=== PATIENT | female | born 1985 | race Caucasian/White ===

== ENCOUNTER 2022-10-17 08:18 | Day surgery (SDC) | payer BC, OTHER ==
[~2022-10-17 08:18] MED LIST: LACTATED RINGERS 1,000 ML IV SCH; LIDOCAINE 1% (10MG/ML) FOR IV START INTRADERMA PRN
[2022-10-17 09:04] VITALS: TEMP 97.5
[2022-10-17] MEDS ORDERED: PROPOFOL 10 MG/ML 20 ML VIAL IV ONE (09:33)
[2022-10-17] MEDS ORDERED: fentaNYL (PF) 50 MCG/ML 2 ML AMP ONE (09:33)
[2022-10-17] MEDS ORDERED: LIDOCAINE 2% INJ 20 MG/ML (2 ML VIAL) ONE (09:33)
--- NOTE | 2022-10-17 09:46 | P.PCN ---
Date of Procedure: 10/17/22 Procedure(s) Performed: BRIEF HISTORY: Patient is a 29-year-old, pleasant, 8 female scheduled for an upper endoscopy as a part of evaluation of epigastric and chest pain for the last 2 months duration. She denies any heartburn. Symptoms are worse with eating and has sensation of dysphagia. Denies any odynophagia. She was started on Protonix 40 mg daily and symptoms are gradually improving. PROCEDURE PERFORMED: Esophagogastroduodenoscopy with biopsy PREOPERATIVE DIAGNOSIS: Epigastric and chest pain for the last 2 months duration. IV sedation per anesthesia. PROCEDURE: After informed consent was obtained, the patient was brought into the endoscopy unit. IV sedation was administered by Anesthesia under continuous monitoring. Initially the Olympus GIF-140 video endoscope was inserted into the mouth. Esophagus intubated without any difficulty. It was gradually advanced into the stomach and duodenum and carefully examined. The bulb and the second part of the duodenum appeared normal. The scope at this time was withdrawn to the stomach, adequately insufflated with air, and upon careful examination, mucosa of the antrum, linear areas of erosions which were biopsied. Mucosa of the body, cardia and the fundus appeared normal. The scope was then withdrawn into the esophagus. The GE junction was located at 37 cm from the incisors. There were linear erosions in the distal esophagus consistent with LA grade B reflux esophagitis. Rest of the esophagus appeared normal and the patient tolerated the procedure well. IMPRESSION: 1. Linear erosions in the distal esophagus consistent with LA grade B reflux esophagitis. 2. Antral erosive gastritis. RECOMMENDATIONS: The findings of this examination were discussed with the patient as well as a family. Follow with the biopsy results. She was advised to increase the Protonix to 40 mg twice daily for 2 months and then decrease it to once daily. Recommended diet modification and she was briefly educated about antireflux measures..
[2022-10-17 10:21] VITALS: BP 112/79; PULSE 68; RESP 16
== END 2022-10-17 10:38 | disposition home or self-care (01) ==
LOC: ORWHC2ENDO 08:18
PROVIDERS: ATTEND Internal Medicine Gastroenterology
DX: K31.9 Disease of stomach and duodenum, unspecified (principal); K29.50 Unspecified chronic gastritis without bleeding; K21.00 Gastro-esophageal reflux disease with esophagitis, without bleeding; I10 Essential (primary) hypertension; F17.210 Nicotine dependence, cigarettes, uncomplicated; Z79.899 Other long term (current) drug therapy; Z88.0 Allergy status to penicillin
CPT/HCPCS: 81025; 88305; 43239; J3010; J2704; J2001

== ENCOUNTER 2023-01-13 15:20 | Emergency (ER) | payer OTHER ==
[2023-01-13] MEDS ORDERED: AZITHROMYCIN 500 MG TAB PO STA (17:18)
[2023-01-13] MEDS ORDERED: IBUPROFEN 800 MG TAB PO STA (17:18)
[2023-01-13] MEDS ORDERED: DEXAMETHASONE SOD PHOSPHATE 10 MG/ML 1 ML VIAL IM STA (17:18)
--- NOTE | 2023-01-13 17:20 | ED ---
ENT HPI - General Chief complaint: ENT Stated complaint: ENT Time Seen by Provider: 01/13/23 16:18 Source: patient, RN notes reviewed, old records reviewed Mode of arrival: ambulatory Limitations: no limitations - History of Present Illness Initial comments: This is a 29-year-old female to the emergency department for evaluation. Patient presents today for evaluation regards to throat pain persistent complaints of sore throat with cough and congestion. Symptoms for greater than a week today. No home with [id number] medications. Patient has no significant medical history takes no medication currently. 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 MD complaint: sore throat, other (Cough congestion) -: week(s) Location: throat Severity: mild Severity scale (1-10): 3 Consistency: constant Improves with: none Worsens with: swallowing (Speaking) Context-Epistaxis: history of similar Associated Symptoms: cough, sore throat - Related Data Home Medications Medication Instructions Recorded Confirmed Losartan/Hydrochlorothiazide 1 tab PO DAILY 10/15/22 10/15/22 [Losartan-Hctz 50-12.5 mg Tab] Pantoprazole Sodium 40 mg PO DAILY 10/15/22 10/15/22 Previous Rx's Medication Instructions Recorded Azithromycin [Zithromax] 500 mg PO DAILY #5 tab 01/13/23 Allergies Allergy/AdvReac Type Severity Reaction Status Date / Time Penicillins Allergy Rash/Hives Verified 01/13/23 15:27 Review of Systems ROS Statement: Those systems with pertinent positive or pertinent negative responses have been documented in the HPI. ROS Other: All systems not noted in ROS Statement are negative. Past Medical History Past Medical History: GERD/Reflux, Hypertension Additional Past Medical History / Comment(s): ITP History of Any Multi-Drug Resistant Organisms: None Reported Past Surgical History: Adenoidectomy, Cholecystectomy, Tonsillectomy Additional Past Surgical History / Comment(s): spleenectomy Past Anesthesia/Blood Transfusion Reactions: No Reported Reaction Past Psychological History: No Psychological Hx Reported Smoking Status: Current every day smoker - Past Family History Mother Family Medical History: Cancer Additional Family Medical History / Comment(s): small cell General Exam - General Exam Comments Initial Comments: Laryngitis hot potato voice with no stridor Limitations: no limitations General appearance: alert, in no apparent distress Head exam: Present: atraumatic, normocephalic, normal inspection Eye exam: Present: normal appearance, PERRL, EOMI. Absent: scleral icterus, conjunctival injection, periorbital swelling ENT exam: Present: normal exam, mucous membranes moist Neck exam: Present: normal inspection. Absent: tenderness, meningismus, lymphadenopathy Respiratory exam: Present: wheezes. Absent: respiratory distress, rales, rhonchi, stridor Cardiovascular Exam: Present: regular rate, normal rhythm, normal heart sounds. Absent: systolic murmur, diastolic murmur, rubs, gallop, clicks GI/Abdominal exam: Present: soft, normal bowel sounds. Absent: distended, tenderness, guarding, rebound, rigid Extremities exam: Present: normal inspection, full ROM, normal capillary refill. Absent: tenderness, pedal edema, joint swelling, calf tenderness Back exam: Present: normal inspection Neurological exam: Present: alert, oriented X3, CN II-XII intact Psychiatric exam: Present: normal affect, normal mood Skin exam: Present: warm, dry, intact, normal color. Absent: rash Course Vital Signs 01/13/23 01/13/23 15:22 18:41 Temperature 97.4 F L 98.7 F Pulse Rate 74 79 Respiratory 18 21 Rate Blood Pressure 156/98 135/74 O2 Sat by Pulse 97 96 Oximetry - Reevaluation(s) Reevaluation #1: 01/13/23 18:33 Medical records reviewed Reevaluation #2: 01/13/23 18:33 Patient symptoms improved Reevaluation #3: 01/13/23 18:33 Patient informed results questions answered Reevaluation #4: 01/13/23 18:33 Was pt. sent in by a medical professional or institution (, PA, PSYCHIATRIC CLINICIAN, urgent care, hospital, or senior care...) When possible be specific @ -no Did you speak to anyone other than the patient for history (EMS, parent, family, police, friend...)? What history was obtained from this source @ -no Did you review nursing and triage notes (agree or disagree)? Why? @ -agree Are old charts reviewed (outside hosp., previous admission, EMS record, old EKG, old radiological studies, urgent care reports/EKG's, senior care records)? Report findings @ -yes Differential Diagnosis (chest pain, altered mental status, abdominal pain women, abdominal pain men, vaginal bleeding, weakness, fever, dyspnea, syncope, headache, dizziness, GI bleed, back pain, seizure, CVA, palpatations, mental health, musculoskeletal)? @ -prior EKG interpreted by me (3pts min.). @ -no X-rays interpreted by me (1pt min.). @ -yes CT interpreted by me (1pt min.). @ -no U/S interpreted by me (1pt. min.). @ -no What testing was considered but not performed or refused? (CT, X-rays, U/S, labs)? Why? @ -none What meds were considered but not given or refused? Why? @ -none Did you discuss the management of the patient with other professionals (professionals i.e. , PA, PSYCHIATRIC CLINICIAN, lab, RT, psych nurse, social media campaign manager, roll line operator, teacher, youth probation officer, geriatric case manager)? Give summary @ -no Was smoking cessation discussed for >3mins.? @ -no Was critical care preformed (if so, how long)? @ -no Were there social determinants of health that impacted care today? How? (Homelessness, low income, unemployed, alcoholism, drug addiction, transportation, low edu. Level, literacy, decrease access to med. care, long-term, rehab)? @ -none Was there de-escalation of care discussed even if they declined (Discuss DNR or withdrawal of care, Hospice)? DNR status @ -no What co-morbidities impacted this encounter? (DM, HTN, Smoking, COPD, CAD, Cancer, CVA, ARF, Chemo, Hep., AIDS, mental health diagnosis, sleep apnea, morbid obesity)? @ -none Was patient admitted / discharged? Hospital course, mention meds given and route, prescriptions, significant lab abnormalities, going to OR and other pertinent info. @ - 37 female to the emergency department for evaluation of a sore throat and weakness, cough patient presents today for evaluation of cough congestion difficulty speaking with hoarse voice. Patient does have laryngitis during exam no moaning atypical on x-ray, we'll treat with antibiotics and greater than a week and patient can be discharged home Discharge Undiagnosed new problem with uncertain prognosis? @ -no Drug Therapy requiring intensive monitoring for toxicity (Heparin, Nitro, Insulin, Cardizem)? @ -no Were any procedures done? @ -no Diagnosis/symptom? @ -Cough URI laryngitis Acute, or Chronic, or Acute on Chronic? @ -Acute Uncomplicated (without systemic symptoms) or Complicated (systemic symptoms)? @ -Complicated Side effects of treatment? @ -no Exacerbation, Progression, or Severe Exacerbation? @ -exacerbation Poses a threat to life or bodily function? How? (Chest pain, [place], [place], pneumonia, PE, COPD, DKA, ARF, appy, cholecystitis, CVA, Diverticulitis, Homicidal, Suicidal, threat to staff... and all critical care pts) @ -no Reevaluation #5: 01/13/23 18:33 Differential Dyspnea: Coronary syndrome, arrhythmia, tamponade, asthma, COPD, pulmonary embolism, pneumonia, pneumothorax, pulmonary effusion, anaphylaxis, diabetic ketoacidosis, flailed chest, pulmonary contusion, diaphragmatic rupture, anemia, neuromuscular, this is not meant to be an all-inclusive list. Medical Decision Making - Medical Decision Making 37 female to the emergency department for evaluation of a sore throat and weakness, cough patient presents today for evaluation of cough congestion diffi culty speaking with hoarse voice. Patient does have laryngitis during exam no moaning atypical on x-ray, we'll treat with antibiotics and greater than a week and patient can be discharged home - Radiology Data Radiology results: report reviewed (Chest x-ray does show atypical pneumonia), image reviewed Disposition Clinical Impression: Laryngitis, Pneumonia, Atypical pneumonia Disposition: HOME SELF-CARE Condition: Good Instructions (If sedation given, give patient instructions): Community Acquired Pneumonia (ED), Croup (ED) Prescriptions: Azithromycin [Zithromax] 500 mg PO DAILY #5 tab Is patient prescribed a controlled substance at d/c from ED?: No Referrals: Adis Baumann MD [Primary Care Provider] - 1-2 days Time of Disposition: 18:30
--- NOTE | 2023-01-13 18:16 | XR ---
EXAMINATION TYPE: XR chest 2V DATE OF EXAM: 01/13/2023 COMPARISON: None HISTORY: 37-year-old female with fever and cough TECHNIQUE: PA and lateral views FINDINGS: Heart normal size. Aorta and pulmonary vasculature within normal limits. Focal hazy lower lung densit ies likely relates to overlying soft tissue. However, there is also peribronchial cuffing and interst itial prominence. IMPRESSION: Some peribronchial cuffing suggests bronchitis or asthma. No focal infiltrate seen.
[2023-01-13 18:51] VITALS: BP 135/74; PULSE 79; RESP 21; TEMP 98.7
== END 2023-01-13 18:46 | disposition home or self-care (01) ==
LOC: EC 15:20
DX: J18.9 Pneumonia, unspecified organism (principal); J04.0 Acute laryngitis; J06.9 Acute upper respiratory infection, unspecified; I10 Essential (primary) hypertension; K21.9 Gastro-esophageal reflux disease without esophagitis; F17.200 Nicotine dependence, unspecified, uncomplicated; Z79.899 Other long term (current) drug therapy; Z88.0 Allergy status to penicillin; Z90.49 Acquired absence of other specified parts of digestive tract; Z90.81 Acquired absence of spleen
CPT/HCPCS: 71046; 99284; 96372; J1100

== ENCOUNTER 2023-03-08 09:25 | Emergency (ER) | payer OTHER ==
[2023-03-08 09:43] VITALS: RESP 18
--- NOTE | 2023-03-08 10:06 | XR ---
EXAMINATION TYPE: XR chest 2V DATE OF EXAM: 03/08/2023 COMPARISON: 01/13/2023 HISTORY: Chest pain TECHNIQUE: Frontal and lateral views of the chest are obtained. FINDINGS: There is no focal air space opacity. No evidence for pneumothorax. No pleural effusion. The cardiac silhouette size is within normal limits. The osseous structures are grossly intact. IMPRESSION: 1. No acute cardiopulmonary process.
--- NOTE | 2023-03-08 10:58 | ED ---
General Adult HPI - General Source: patient Mode of arrival: ambulatory Limitations: no limitations <Rufus Cobian - Last Filed: 03/08/23 10:58> - General Source: patient, RN notes reviewed Mode of arrival: ambulatory Limitations: no limitations <Marielos Sandoval - Last Filed: 03/08/23 13:35> - General Chief complaint: Upper Respiratory Infection Stated complaint: Cough, Fever Time Seen by Provider: 03/08/23 10:58 - History of Present Illness Initial comments: 38-year-old female presenting to the ED with a chief complaint of upper respiratory symptoms. Patient states for the past 4 days has had cough, myalgias, congestion, rhinorrhea, subjective fever. Patient reports despite taking cough medications is still coughing prompting presentation to the ED for further evaluation. No chest pain or shortness of breath. (Rufus Cobian) In addition to the information above, patient denies any sick contacts. She does report a history of asthma. States that breathing hurts but is not difficult. She is also running out of her inhaler. The cough is the most bothersome symptom for her and has been very difficult to control with over the counter treatment. (Marielos Sandoval) - Related Data Home Medications Medication Instructions Recorded Confirmed Losartan/Hydrochlorothiazide 1 tab PO DAILY 10/15/22 10/15/22 [Losartan-Hctz 50-12.5 mg Tab] Pantoprazole Sodium 40 mg PO DAILY 10/15/22 10/15/22 Previous Rx's Medication Instructions Recorded Azithromycin [Zithromax] 500 mg PO DAILY #5 tab 01/13/23 Albuterol Sulfate [Albuterol 1 puff PO Q4-6H PRN #8.5 gm 03/08/23 Sulfate Hfa] Molnupiravir [Lagevrio (Eua)] 800 mg PO BID 5 Days #40 cap 03/08/23 guaiFENesin-Coden 100-10MG/5ML 5 - 10 ml PO Q4-6H PRN 3 Days #180 03/08/23 [Robitussin AC] ml predniSONE 50 mg PO DAILY 5 Days #5 tab 03/08/23 Allergies Allergy/AdvReac Type Severity Reaction Status Date / Time Penicillins Allergy Rash/Hives Verified 03/08/23 09:33 Review of Systems ROS Other: All systems not noted in ROS Statement are negative. <Rufus Cobian - Last Filed: 03/08/23 10:58> ROS Other: All systems not noted in ROS Statement are negative. <Marielos Sandoval - Last Filed: 03/08/23 13:35> ROS Statement: Those systems with pertinent positive or pertinent negative responses have been documented in the HPI. Past Medical History Past Medical History: Asthma, GERD/Reflux, Hypertension Additional Past Medical History / Comment(s): ITP History of Any Multi-Drug Resistant Organisms: None Reported Past Surgical History: Adenoidectomy, Cholecystectomy, Tonsillectomy Additional Past Surgical History / Comment(s): spleenectomy Past Anesthesia/Blood Transfusion Reactions: No Reported Reaction Past Psychological History: No Psychological Hx Reported Smoking Status: Current every day smoker Past Alcohol Use History: None Reported Past Drug Use History: None Reported - Past Family History Mother Family Medical History: Cancer Additional Family Medical History / Comment(s): small cell <Rufus Cobian - Last Filed: 03/08/23 10:58> General Exam Limitations: no limitations General appearance: alert Respiratory exam: Present: normal lung sounds bilaterally Neurological exam: Present: alert <Rufus Cobian - Last Filed: 03/08/23 10:58> Limitations: no limitations General appearance: alert Head exam: Present: atraumatic, normocephalic, normal inspection Respiratory exam: Present: decreased breath sounds, prolonged expiratory. Absent: wheezes, rales, rhonchi Cardiovascular Exam: Present: regular rate, normal rhythm, normal heart sounds. Absent: systolic murmur, diastolic murmur, rubs, gallop, clicks Neurological exam: Present: alert, oriented X3, CN II-XII intact Psychiatric exam: Present: normal affect, normal mood Skin exam: Present: warm, dry, intact, normal color. Absent: rash <Marielos Sandoval - Last Filed: 03/08/23 13:35> Course Vital Signs 03/08/23 03/08/23 03/08/23 09:28 11:46 12:21 Temperature 98.6 F 98.7 F Pulse Rate 91 87 Respiratory 18 18 18 Rate Blood Pressure 134/87 130/79 O2 Sat by Pulse 96 97 Oximetry Medical Decision Making <Rufus Cobian - Last Filed: 03/08/23 10:58> - Radiology Data Radiology results: report reviewed, image reviewed <Marielos Sandoval - Last Filed: 03/08/23 13:35> - Medical Decision Making Quicknote portion performed. Signed Rufus Cobian PA-C (Rufus Cobian) This is a 38-year-old female who presents to the emergency department for coughing and congestion. Was pt. sent in by a medical professional or institution? @ -No Did you speak to anyone other than the patient for history? @ -No Did you review nursing and triage notes? @ -Yes, and I agree, it is accurate with regards to the patient's symptoms. Were old charts reviewed? @ -No Differential Diagnosis? @ -Differential Cough: Influenza, Covid, RSV, croup, allergic rhinitis, GERD, pneumonia, bronchitis, COPD, viral pharyngitis, streptococcal pharyngitis, this is not meant to be an all-inclusive list. EKG interpreted by me (3pts min.)? @ -Not obtained X-rays interpreted by me (1pt min.)? @ -Chest x-ray obtained, my interpretation identifies no localized consolidations or infiltrates. CT interpreted by me (1pt min.)? @ -Not obtained U/S interpreted by me (1pt. min.)? @ -Not obtained What testing was considered but not performed? (CT, X-rays, U/S, labs)? Why? @ -None What meds were considered but not given? Why? @ -None Did you discuss the management of the patient with other professionals? @ -No Did you reconcile home meds? @ -No Was smoking cessation discussed for >3mins.? @ -No Was critical care preformed (if so, how long)? @ -No Were there social determinants of health that impacted care today? How? (Homelessness, low income, unemployed, alcoholism, drug addiction, transportation, low edu. Level, literacy, decrease access to med. care, senior care, rehab)? @ -No Was there de-escalation of care discussed even if they declined? (Discuss DNR or withdrawal of care, Hospice)? @ -No What co-morbidities impacted this encounter? (DM, HTN, Smoking, COPD, CAD, Cancer, CVA, Hep., AIDS, mental health diagnosis, sleep apnea, morbid obesity)? @ -Asthma Was patient admitted / discharged? @ -Discharged. Patient positive for COVID-19. Chest x-ray reveals no acute process. Given that she is positive for Covid, she is unable to receive a DuoNeb breathing treatment in the emergency department and would only be able to be given an albuterol inhaler. Patient states that she would rather just have this sent to her pharmacy. She does wish to proceed with antiviral treatment. Prescription for Molnupiravir, prednisone, albuterol inhaler, and Robitussin AC provided with dosing instructions reviewed. She is also advised that she'll need to quarantine for 5 days and practice extra precautions for an additional 5 days, including always wearing a mask around others and avoiding travel. Patient otherwise discharged home in stable condition. Undiagnosed new problem with uncertain prognosis? @ -None Drug Therapy requiring intensive monitoring for toxicity (Heparin, Nitro, I nsulin, Cardizem)? @ -None Were any procedures done? @ -None Diagnosis/symptom? @ -COVID-19 Acute, or Chronic, or Acute on Chronic? @ -Acute Uncomplicated (without systemic symptoms) or Complicated (systemic symptoms)? @ -Uncomplicated Side effects of treatment? @ -None Exacerbation, Progression, or Severe Exacerbation] @ -Not applicable Poses a threat to life or bodily function? @ -No Return precautions reviewed in depth, the patient is instructed to return to the emergency department with any new, worsening, or concerning symptoms. Patient verbalized understanding. This case was discussed in detail with the attending ED physician, Dr. Solis. Presentation, findings, and treatment plan discussed in detail as well. (Marielos Sandoval) - Lab Data Lab Results 03/08/23 Range/Units 09:37 SARS-CoV-2 (PCR) Detected A (Not Detectd) Disposition <Rufus Cobian - Last Filed: 03/08/23 10:58> Is patient prescribed a controlled substance at d/c from ED?: Yes When asked, does pt state using other controlled substances?: Yes If prescribed controlled substance>3 days was MAPS reviewed?: Prescribed <3 Days <Marielos Sandoval - Last Filed: 03/08/23 13:35> Clinical Impression: COVID-19 Disposition: HOME SELF-CARE Instructions (If sedation given, give patient instructions): COVID-19 (Coronavirus Disease 2019) (ED), Safely Care for Someone Who Has COVID-19 (ED), How to Recover from COVID-19 at Home (ED) Additional Instructions: Return to the emergency department with any new, worsening, or concerning symptoms. Take the Molnupiravir as 4 tablets twice daily for 5 days. Take the prednisone daily for 5 days. The cough medication and inhaler can be used every 4-6 hours. You will need to quarantine for 5 days and practice extra precautions for an additional 5 days. Prescriptions: Albuterol Sulfate [Albuterol Sulfate Hfa] 1 puff PO Q4-6H PRN #8.5 gm PRN Reason: Shortness Of Breath Molnupiravir [Lagevrio (Eua)] 800 mg PO BID 5 Days #40 cap predniSONE 50 mg PO DAILY 5 Days #5 tab guaiFENesin-Coden 100-10MG/5ML [Robitussin AC] 5 - 10 ml PO Q4-6H PRN 3 Days #180 ml PRN Reason: Cough Referrals: Adis Baumann MD [Primary Care Provider] - 1-2 days
[2023-03-08 12:46] VITALS: BP 130/79; PULSE 87; TEMP 98.7
== END 2023-03-08 12:30 | disposition home or self-care (01) ==
LOC: EC 09:25
DX: U07.1 COVID-19 (principal); J45.909 Unspecified asthma, uncomplicated; K21.9 Gastro-esophageal reflux disease without esophagitis; I10 Essential (primary) hypertension; F17.200 Nicotine dependence, unspecified, uncomplicated; Z79.899 Other long term (current) drug therapy; Z88.0 Allergy status to penicillin
CPT/HCPCS: 71046; 87635; 99283

== ENCOUNTER 2023-11-25 10:43 | Emergency (ER) | payer OTHER ==
--- NOTE | 2023-12-24 14:12 | XR ---
Patient Martir Barker ID [id number] EXAMINATION TYPE: XR chest 2V DATE OF EXAM: 11/25/2023 COMPARISON: No comparisons available during PACS down time. INDICATION: Fever TECHNIQUE: Frontal and lateral views of the chest are obtained. FINDINGS: The heart size is normal. The pulmonary vasculature is normal. The lungs are clear. IMPRESSION: 1. No acute pulmonary process.
== END 2023-11-25 11:31 | disposition home or self-care (01) ==
LOC: EC 10:43
DX: J40 Bronchitis, not specified as acute or chronic (principal)
CPT/HCPCS: 71046; 99283